=== PATIENT | female | born 1990 | race Caucasian/White ===

== ENCOUNTER 2023-02-03 20:24 | Outpatient (REF) | payer OTHER, SELFPAY ==
[2023-02-08 07:07] LABS: Age Gdln ACOG Testing Note (.); HPV Aptima Negative (Negative); IGP, Aptima HPV, rfx 16/18,45 Note (.)
== END 2023-02-03 20:25 | disposition home or self-care (01) ==
LOC: LAB 20:24
PROVIDERS: Visit Provider Physician Assistant
DX: Z01.419 Encounter for gynecological examination (general) (routine) without abnormal findings (principal)
CPT/HCPCS: 87624; G0145

== ENCOUNTER 2025-02-02 19:30 | Outpatient (REF) | payer OTHER, SELFPAY ==
--- OUTSIDE RECORDS SUMMARY | 2021-06-14 05:32 | XMS_ITS | Continuity of Care Document ---
Author Organization [facility] Address [address] [address] Phone Care Team Providers Care Sharepoint Specialist Name Role Phone Kal Alejo OD Unavailable Unavailable Allergies, Adverse Reactions, Alerts Substance Reaction Status Criticality No Known Allergies Active No Inform ation Medications Medication Instructions Dosage Effective Dates (start - stop) Status Comments Humulin 70/30 U-100 Insulin 100 unit/mL subcutaneous suspension inject by subcutaneous route as per insulin protocol 0.00 - Active metformin 500 mg tablet take 1 tablet by oral route 2 times every day with morning and evening meals 500 MG - Active atorvastatin 40 mg tablet take 1 tablet by oral route every day 40 MG - Active Vitamin D2 1,250 mcg (50,000 unit) capsule - Active multivitamin tablet take 1 tablet by ora l route every day 1 tablet - Active Procedures Procedure Date Dilated Exam Performed And Documented No Oph Serv: Med Exam; Comp New 21 Advance Directives Directive Yes / No Effective Date File Name No Information Encounters Encounter Description Practice Location Reason(s) For Visit Diagnoses Date Provider Providers Copied on Encounter [facility], [address] [facility] , [place], [place], [id number], tel:[phone] [facility] No Information Sapna Bowden. [address] [facility] , [place], [place], [id number], [place]. tel:[phone] [facility], [address] [facility] [address], [place], [place], [id number], tel:[phone] [facility] Diabetic eye exam (chief complaint) Type 2 diabetes mellitus without complication, unspecified whether terminal press operator insulin useMyopia of both eyes Sapna Bowden. [address], [place], [place], [id number], [place]. tel:[phone] Referring Provider: Kal Lazo, [address] [facility] , [place], [address]. tel:[phone] Family History Family Member Type Diagnosis Age At Onset Father Problem (finding) glaucoma Payers Payer name Insurance type Covered libertarian ID Authoriza tion(s) No Information Social History Type Description Quantity Date Captured Comments Alcohol Use Details Unknown Caffeine Use Details Unknown Tobacco Use Status No Information Smoking Status No Information Sex Female Chief Complaint And Reason For Visit No Information Reason For Referral Reason For Referral No Information Plan Of Treatment Date Type Action Status Patient Education Type 2 Diabetes: Care I nstructions completed History Of Present Illness Encounter Date Complaint History Of Prese nt Illness Diabetic eye exam Patient presjason ts for a diabetic eye exam. Patient last glucose level was 136 and A1C was 7.2. Patient states vision has been stable. Patient states she gets intermittent blurriness but blinks it away. No drops/pain. Functional Status Date Functional Assessmen t No Information Instructions Date Instruction Additional Infor mation Impression/Plan Related to Type 2 diabetes mellitus without complication, unspecified whether alf insulin use Impression/Plan Related to Myopi a of both eyes Assessments Type Assessment Date No Information Patient Care Teams Name Effective Dates (start - stop) Status Members No Information
--- OUTSIDE RECORDS SUMMARY | 2023-11-24 04:30 | XMS_ITS ---
Author Organization [facility] Address [address] [address] Care Team Providers Care Donkey Engine Firer/Fireman Name Role Phone Fatemeh Ventura Primary Care Provider REASON FOR VISIT 3 month f/u DM, A1C Social History Sex Assigned At : Social History Observation Description Sex Assigned At Female Encounters Encounter Location Date Provider Diagnosis [facility] [address] [place] [address] 11/24/2023 Fatemeh Vetnura Plan Of Treatment No Information Progress Notes * JEET MCKINNONDOB:[birth year] (34 yo F)Acc No.[id number]:11/24/2023 Progress Notes Patient: JEET JOLLY Provider: Clifton Lala :1990 A ge:33 Y S ex:Female Date:11/24/2023 Address:[address] [place] [address] [address], [id number] Subjective: * Chief Complaints: * 1 . 3 month f/u DM, A1C. * Medical History: Objective: * Vitals: Assessment: Plan: * Treatment: * Images: * Electronic signature of Austyn Ventura CNP on 02/02/2025 at 07:34 PM EDT Sign off status: Pending * Provider: Clifton Lala Date: 11/24/2023 Generated for Nedai ng/Facolbyg/eTransmitting on: 0 02/02/2025 07:34 PM EDT
--- OUTSIDE RECORDS SUMMARY | 2024-09-26 04:55 | XMS_ITS | Continuity of Care Document ---
Author Organization [facility] Address [address] [place] [address] Phone Care Team Providers Care Deputy Sheriff K9 Handler Name Role Phone Alexandre Turpin Unavailable Unavailable Allergies, Adverse Reactions, Alerts Substance Reaction Status Criticality No Known Allergies Active No Inform ation Medications Medication Instructions Dosage Effective Dates (start - stop) Status Comments Ozempic 1 mg/dose (4 mg/3 mL) subcutaneous pen injector inject (1MG) by subcutaneous route every week on the same day of each week 1 MG - Active lisinopril 10 mg tablet take 1 tablet by oral route every day 10 MG - Active metformin 500 mg tablet take 1 tablet by oral route 2 times every day with morning and evening meals 500 MG - Active Procedures Procedure Date TB Read TB INTRADERMAL TEST Covid-19 Vaccine Administration 024 Covid-19 Vaccine, 50 Mcg Moderna 12y Plu s IMMUNIZATION ADMIN FLU VACCINE NO PRESERV 3 & > ROUTINE VENIPUNCTURE TB Read TB INTRADERMAL TEST IMMUNIZATION ADMIN HEP B VACCINE, ADULT, IM IMMUNIZATION ADMIN HEP B VACCINE, ADULT, IM Covid-19 Vaccine Administration 023 Covid-19 Vaccine, 50 Mcg Moderna 12y Plu s ROUTINE VENIPUNCTURE IMMUNIZATION ADMIN FLU VAC NO PRSV 4 QUE 3 YRS+ IMMUNIZATION ADMIN, EACH ADD HEP B VACCINE, ADULT, IM ROUTINE VENIPUNCTURE TB INTRADERMAL TEST IMMUNIZATION ADMIN FLU VAC NO PRSV 4 QUE 3 YRS+ ROUTINE VENIPUNCTURE Bitewig-single Film Limited Oral Eval Intraoral-periapical 1st Film 2 Zixbchviv-gwsamjonor-bygb Additional November URINALYSIS, NONAUTO W/SCOPE URINE TEST SPECIMEN HANDLING HIV-1 ROUTINE VENIPUNCTURE PREVENTIVE COUNSELING, INDIV PREV VISIT, NEW, AGE 18-39 SPECIMEN HANDLING THIN PREP PAP W/REFLEX TO ASCUS 009 URINE TEST OFFICE/OUTPATIENT VISIT, EST URINALYSIS, NONAUTO W/SCOPE Advance Directives Directive Yes / No Effective Date File Name No Information Encounters Encounter Description Practice Location Reason(s) For Visit Diagnoses Date Provider Providers Copied on Encounter [facility], [address] [place] [address], [id number], [place] tel:[phone] [facility] No Information Bob Brannon. [address] [place] [address], [id number], [place]. tel:[phone] [facility], [address] [place] [address], [id number], [place] tel:[phone] [facility] Encounter for screening for respiratory tuberculosis Bob Brannon. [address] [place] [address], [id number], [place]. tel:[phone] [facility], [address] [place] [address], [id number], [place] tel:[phone] [facility] No Information Visci DO Alexandre. [address], [place], [id number], [place]. tel:[phone] [facility], [address], [place], [id number], [place] tel:[phone] [facility] lab draw (chief complaint) No Information Visci Alexandre. [address], [place], [id number], [place]. tel:[phone] [facility], [address], [place], [id number], [place] tel:[phone] [facility] No Information Visci DO Schroeder. [address], [place], [id number], [place]. tel:[phone] [facility], [address], [place], [id number], [place] tel:[phone] [facility] Encounter for screening for respiratory tuberculosis Visci DO Schroeder. [address], [place], [id number], [place]. tel:[phone] [facility], [address], [place], [id number], [place] tel:[phone] [facility] No Information Visci DO Schroeder. [address], [place], [id number], [place]. tel:[phone] [facility], [address], [place], [id number], [place] tel:[phone] [facility] No Information Visci DO Alexandre. [address], [place], [id number], [place]. tel:[phone] [facility], [address], [place], [id number], [place] tel:[phone] [facility] No Information Visci DO Alexandre. [address], [place], [id number], [place]. tel:[phone] [facility], [address], [place], [id number], [place] tel:[phone] [facility] Lab draw (chief complaint) No Information Bob Brannon. [address], [place], [id number], [place]. tel:[phone] [facility], [address], [place], [id number], [place] tel:[phone] [facility] No Information Bob Brannon. [address], [place], [id number], [place]. tel:[phone] [facility], [address], [place], [id number], [place] tel:[phone] [facility] Encounter for antibody response examination Bob Brannon. [address], [place], [id number], [place]. [phone] [facility], [address], [place], [id number], [place] tel:[phone] [facility] Tuberculosis screening Bob Brannon. [address], [place], [id number], [place]. tel:[phone] [facility], [address], [place], [id number], [place] tel:[phone] [facility] labs (chief complaint) Tuberculosis screening Bob Brannon. [address], [place], [id number], [place]. tel:[phone] [facility], [address], [place], [id number], [place] tel:[phone] [facility] [place] (chief complaint) Encounter for screening for dental disorders Uday Moseley. [address] [place], [address], [place]. tel:[phone] PREVENTIVE COUNSELING, INDIV [facility], [address], [place], [id number], [place] tel:[phone] [facility] No Information Betty Márquez. [address], [place], [id number], [place]. tel:[phone] PREV VISIT, NEW, AGE 18-39 [facility], [address], [place], [id number], [place] tel:[phone] [facility] No Information Dav Dugan. [address], [place], [id number]. tel:[phone] OFFICE/OUTPAT IENT VISIT, EST [facility], [address] [place] [address], [id number], [place] tel:[phone] [facility] No Information Betty Márquez. [address], [place], [id number], [place]. tel:[phone] Family History Family Member Type Diagnosis Age At Onset No Information Immunizations Vaccine Date Status Comments Spikevax 12y+ administered Source: New Im munization Record Fluarix/Flulaval administered Source: New Immunization Record Hep B, adult, 3 dose administered Source: New Immunization Record Hep B, adult, 3 dose administered Note: # 2 of second series ; Source: New Immunization Record Spikevax 12y+ administered Source: New Im munization Record Flulaval/ Fluarix administered Source: Ne w Immunization Record Hep B, adult, 3 dose administered Source: New Immunization Record Flulaval/ Fluarix administered Source: Ne w Immunization Record Payers Payer name Insurance type Covered constitution party ID Authoriza tion(s) Self Pay Cap [id number] [facility] [place] [id number] [facility] [place] CI [id number] [facility] [place] CI [id number] Self Pay Cap [id number] Social History Type Description Quantity Date Captured Comments Alcohol Use Details Unknown Caffeine Use Details Unknown Tobacco Use Status No Information Smoking Status No Information Sex Female Sexual Orientation Straight or heterosexual Gender Identity Female Chief Complaint And Reason For Visit No Information Reason For Referral Reason For Referral No Information Plan Of Treatment Date Type Action Status Goal Tdap. Due on due Goal Hepatitis C screening. Due o n due Goal Unhealthy drug use screening . Due on due Goal Hep A. Due on du e Goal Influenza vaccine. Due on Oc due Goal Tdap Vaccine. Due on 2024 due Goal PRAPARE ASSESSMENT. Due on due Goal RLP. Due on due Goal Depression screening. Due on due Goal HPV. Due on due Goal Hep A. Due on du e Goal RLP. Due on due Goal Tdap Vaccine. Due on 2024 due Goal Hepatitis C screening. Due o n due Goal Unhealthy drug use screening . Due on due Goal Influenza vaccine. Due on Oc due Goal HPV. Due on due Goal Tdap. Due on due Goal PRAPARE ASSESSMENT. Due on due Goal Depression screening. Due on due Goal Hep A. Due on du e Goal Influenza vaccine. Due on Oc due Goal Depression screening. Due on due Goal Tdap. Due on due Goal HPV. Due on due Goal Tdap Vaccine. Due on 2023 due Goal RLP. Due on due Goal Unhealthy drug use screening . Due on due Goal Hepatitis C screening. Due o n due Goal PRAPARE ASSESSMENT. Due on O due Goal Hep A. Due on du e Goal Unhealthy drug use screening . Due on due Goal Depression screening. Due on due Goal Influenza vaccine. Due on due Goal PRAPARE ASSESSMENT. Due on A due Goal Tdap Vaccine. Due on 2023 due Goal RLP. Due on due Goal Hepatitis C screening. Due o n due Goal Tdap. Due on due Goal HPV. Due on due Goal Unhealthy drug use screening . Due on due Goal Tdap. Due on due Goal Hepatitis C screening. Due o n due Goal Depression screening. Due on due Goal Influenza vaccine. Due on due Goal PRAPARE ASSESSMENT. Due on due Goal HPV. Due on due Goal Tdap Vaccine. Due on 2023 due Goal RLP. Due on due Goal Hep A. Due on du e Goal Tdap. Due on due Goal Hepatitis C screening. Due o n due Goal Tdap Vaccine. Due on 2023 due Goal Unhealthy drug use screening . Due on due Goal HPV. Due on due Goal Hep A. Due on du e Goal RLP. Due on due Goal Influenza vaccine. Due on due Goal Depression screening. Due on due Goal PRAPARE ASSESSMENT. Due on due Goal PRAPARE ASSESSMENT. Due on due Goal HPV. Due on due Goal Hep A. Due on du e Goal Influenza vaccine. Due on due Goal Tdap Vaccine. Due on 2023 due Goal Depression screening. Due on due Goal Unhealthy drug use screening . Due on due Goal Tdap. Due on due Goal RLP. Due on due Goal Hepatitis C screening. Due o n due Goal Tdap. Due on due Goal Influenza vaccine. Due on Ja due Goal PRAPARE ASSESSMENT. Due on J due Goal HPV. Due on due Goal Depression screening. Due on due Goal Hep A. Due on du e Goal Tdap Vaccine. Due on 2023 due Goal Hepatitis C screening. Due o n due Goal Unhealthy drug use screening . Due on due Goal RLP. Due on due Goal Hep A. Due on du e Goal Hepatitis C screening. Due o n due Goal RLP. Due on due Goal PRAPARE ASSESSMENT. Due on N due Goal Tdap. Due on due Goal HPV. Due on due Goal Unhealthy drug use screening . Due on due Goal Depression screening. Due on due Goal Influenza vaccine. Due on due Goal Tdap Vaccine. Due on 2022 due Goal Hep A. Due on du e Goal Unhealthy drug use screening . Due on due Goal RLP. Due on due Goal Depression screening. Due on due Goal Tdap. Due on due Goal HPV. Due on due Goal PRAPARE ASSESSMENT. Due on N ov due Goal Influenza vaccine. Due on No v due Goal Hepatitis C screening. Due o n due Goal Tdap Vaccine. Due on 2022 due Goal HPV. Due on due Goal Influenza vaccine. Due on Oc t due Goal PRAPARE ASSESSMENT. Due on O ct due Goal Hepatitis C screening. Due o n due Goal RLP. Due on due Goal Tdap Vaccine. Due on 2022 due Goal Tdap. Due on due Goal Depression screening. Due on due Goal Unhealthy drug use screening . Due on due Goal Influenza vaccine. Due on Se due Goal Tdap. Due on due Goal RLP. Due on due Goal Depression screening. Due on due Goal PRAPARE ASSESSMENT. Due on S due Goal Tdap Vaccine. Due on 2022 due Goal PRAPARE ASSESSMENT. Due on M due Goal Influenza vaccine. Due on Ma due Goal Tdap. Due on due Goal RLP. Due on due Goal Hep A. Due on du e Goal Hep A. Due on du e Goal Tdap Vaccine. Due on 2022 due Goal Depression screening. Due on due Goal Influenza vaccine. Due on due Goal Depression screening. Due on due Goal PRAPARE ASSESSMENT. Due on D due Goal RLP. Due on due Goal Tdap. Due on due History Of Present Illness Encounter Date Complaint History Of Prese nt Illness lab draw Patient here for hep b titer. Venipuncture successful on first attempt in [place], pt tolerated well. [facility] Lab draw Patient here for lab draw, lab drawn in [facility], patient tolerated well // [facility] [place]. labs lab draw to [facility] unsuccessful x1. Lab draw to left ac successful x1. Patient tolerated well.Calixto Mcnair Rn [place] Functional Status Date Functional Assessmen t No Information Instructions Date Instruction Additional Infor mation No Information Assessments Type Assessment Date No Information Patient Care Teams Name Effective Dates (start - stop) Status Members No Information
--- OUTSIDE RECORDS SUMMARY | 2025-02-02 10:00 | XMS_ITS | Encounter Summary ---
Author Organization [facility] Address [address] [place] [address] Care Team Providers Care Forming Machine Tender Name Role Phone Xiomara Garcias MD, IBCLC Primary Care Provid er Xiomara Garcias MD, IBCLC Unavailable [phone]- [phone] Reason for Visit * Reason Comments Well Women Visit Encounter Details Date Type Department Care Team (Latest Contact Info) Description 02/02/2025 10:00 AM EDT Procedure Visit [facility] CONTRERAS [address] [address] Tamiko Johnson PA [address] [place], [facility] Well woman exam with routine gynecological exam; STD exposure; Sexually transmitted disease exposure Social History Tobacco Use Types Packs/Day Years Used Date Smoking Tobacco: Never Smokeless Tobacco: Never Alcohol Use Standard Drinks/Week Comments Never 0 (1 standard drink = 0.6 oz pur e alcohol) Caffeine intake type: soda B1300 Health Literacy Answer Date Recor ded How often do you need to hav e someone help you when you read instructions, pamphlets, or other written material from your doctor or pharmacy? Never 10/31/2024 Humiliation, Afraid, Rape, and Kick questionnair e Answer Date Recorded Within the last year, have y ou been afraid of your partner or ex-partner? Yes 10/31/2024 Within the last year, have y ou been humiliated or emotionally abused in other ways by your partner or ex-partner? Yes Within the last year, have y ou been kicked, hit, slapped, or otherwise physically hurt by your partner or ex-partner? No 10/31/2024 Within the last year, have y ou been raped or forced to have any kind of sexual activity by your partner or ex-partner? No 10/31/2024 Social Connection and Isolation Panel [NHANES] A nswer Date Recorded In a typical week, how many times do you talk on the phone with family, friends, or neighbors? Three times a week 10/31/2024 How often do you get togethe r with friends or relatives? Once a week 10/31/2024 How often do you attend chur or episcopal services? Never 10/31/2024 Do you belong to any clubs o r organizations such as shinto groups, unions, fraternal or athletic groups, or school groups? Yes 10/31/2024 How often do you attend meet ings of the clubs or organizations you belong to? Never 10/31/2024 Are you , , di vorced, , never , or living with a partner? 10/31/2024 AUDIT-C Answer Date Recorded Q1: How often do you have a drink containing alcohol? Never 10/31/2024 Q2: How many drinks containi ng alcohol do you have on a typical day when you are drinking? Patient does not drink Q3: How often do you have si x or more drinks on one occasion? Never 10/31/2024 Overall Financial Resource Strain (CARDIA) Answe r Date Recorded How hard is it for you to pa y for the very basics like food, housing, medical care, and heating? Somewhat hard 10/31/2024 [facility] [place] of Occupat ional Health - Occupational Stress Questionnaire Answer Date Recorded Do you feel stress - tense, restless, nervous, or anxious, or unable to sleep at night because your mind is troubled all the time - these days? Rather much 10/31/2024 Exercise Vital Sign Answer Date Recorde d On average, how many days pe r week do you engage in moderate to strenuous exercise (like a brisk walk)? 2 days 10/31/2024 On average, how many minutes do you engage in exercise at this level? 20 min 10/31/2024 Hunger Vital Sign Answer Date Recorded Within the past 12 months, y ou worried that your food would run out before you got the money to buy more. Sometimes true Within the past 12 months, t he food you bought just didn't last and you didn't have money to get more. Never true PRAPARE - Transportation Answer Date Re corded In the past 12 months, has l ack of transportation kept you from medical appointments or from getting medications? No 10/05 In the past 12 months, has l ack of transportation kept you from meetings, work, or from getting things needed for daily living? No 10/31/2024 Housing Stability Vital Sign Answer Jelani e Recorded In the last 12 months, was t here a time when you were not able to pay the mortgage or rent on time? No 10/21/2023 In the last 12 months, how many places have you lived? 1 10/21/2023 In the last 12 months, was t here a time when you did not have a steady place to sleep or slept in a nursing home (including now)? Yes 10/21/2023 Housing Stability Vital Sign Answer Jelani e Recorded In the last 12 months, was t here a time when you were not able to pay the mortgage or rent on time? Yes 10/31/2024 Number of Times Moved in the Last Year Not on fi le 10/31/2024 At any time in the past 12 m [facility], were you homeless or living in a nursing home (including now)? No 10/31/2024 Comments Unknown Sex and Gender Information Value Date Recorded Sex Assigned at Female 11/25/2022 2:54 PM EDT Legal Sex Female 7:23 PM EDT Gender Identity Female 11/25/2022 2:54 PM EDT Sexual Orientation Straight 11/25/2022 2: 54 PM EDT documented as of this encounter Last Filed Vital Signs Vital Sign Reading Time Taken Comments Blood Pressure 128/90 02/02/2025 9:59 AM EDT Pulse - - Temperature - - Respiratory Rate - - Oxygen Saturation - - Inhaled Oxygen Concentration - - Weight 142 kg (314 lb) 02/02/2025 9:59 AM EDT Height - - Body Mass Index 55.62 11/03/2024 3:02 PM EDT documented in this encounter Progress Notes * KRISHNA Mak - 02/02/2025 10:00 AM EDT Reason for Appointment: Patient ID: Terri Bajwa is a 34 y.o. female who presents for Well Women Visit Patient presents today for Annual Exam. MEDICATIONS Current Outpatient Medications Medication Instructions atorvastatin (LIPITOR) 40 mg, Oral, Daily Blood Glucose Monitoring Suppl (True Metrix Meter) w/Device kit Use four times daily to test blood sugar Drug Mcdade Unilet Lancets 33G misc USE TO CHECK BLOOD SUGAR THREE TIMES DAILY glucose blood (True Metrix Blood Glucose Test) test strip USE TO CHECK BLOOD SUGAR THREE TIMES DAILY lisinopril 10 mg, Oral, Daily metFORMIN (GLUCOPHAGE) 500 mg, Oral, 2 times daily with meals Mounjaro 15 mg, Subcutaneous, Weekly ALLERGIES No Known Allergies PROBLEMS Active Ambulatory Problems Diagnosis Date Noted Hyperlipidemia 09/10/2023 Hypertension due to endocrine disorder 09/10/2023 Irregular menstrual cycle 09/10/2023 Mixed anxiety and depressive disorder 09/10/2023 Obstructive sleep apnea syndrome 09/10/2023 Type 2 diabetes mellitus with microalbuminuria, with long-term current use of insulin ([facility] 09/10/2023 TMJ (temporomandibular joint syndrome) 09/14/2023 Morbid (severe) obesity due to excess calories ([facility] 02/01/2024 Body mass index (BMI) 50.0-59.9, adult ([facility] 02/01/2024 Resolved Ambulatory Problems Diagnosis Date Noted Benign essential hypertension 09/10/2023 Pain in left leg 09/10/2023 Type 2 diabetes mellitus without complications (HCC) 09/10/2023 Normocytic anemia 10/22/2023 Past Medical History: Diagnosis Date Diabetes (HCC) History of miscarriage Hypertension HISTORY PAST MEDICAL HISTORY SOCIAL HISTORY Past Medical History: Diagnosis Date Diabetes (HCC) type II History of miscarriage Hypertension Irregular menstrual cycle Normocytic anemia 10/22/2023 HEMOGLOBIN 10/20/2023 11.6 (L) HEMATOCRIT 10/20/2023 36.3 MCV 10/20/2023 87.9 Hgb in 2022 was 8.8. Therefore much improved. No clinical stigmata of bleeding. Can consider iron, B12/folate assay in future if symptomatic. Currently asymptomatic. Social History Tobacco Use Smoking status: Never Smokeless tobacco: Never Substance Use Topics Alcohol use: Never Comment: Caffeine intake type: soda Drug use: Not on file FAMILY HISTORY Family History Problem Relation Name Age of Onset Thyroid disease Mother Eczema Mother Diabetes Father Diabetes Daughter SURGICAL HISTORY Past Surgical History: Procedure Laterality Date DILATION AND CURETTAGE OF UTERUS MULTIPLE TOOTH EXTRACTIONS 2023 REVIEW OF SYSTEMS Review of Systems: Review of Systems Constitutional: Negative. HENT: Negative. Eyes: Negative. Respiratory: Negative. Cardiovascular: Negative. Gastrointestinal: Negative. Genitourinary: Negative. Musculoskeletal: Negative. Skin: Negative. Neurological: Negative. All other systems reviewed and are negative. Hematological: Negative. Endocrine: Negative. Allergic/Immunologic: Negative. OBJECTIVE Objective: Physical Exam Constitutional: Appearance: Normal appearance. Genitourinary: Right Adnexa: not tender and no mass present. Left Adnexa: not tender and no mass present. No cervical discharge. Breasts: Breasts are soft. Right: Normal. Left: Normal. HENT: Head: Normocephalic. Nose: Nose normal. Mouth/Throat: Mouth: Mucous membranes are moist. Cardiovascular: Rate and Rhythm: Normal rate. Pulmonary: Effort: Pulmonary effort is normal. Abdominal: General: Bowel sounds are normal. Palpations: Abdomen is soft. Comments: Abdominal pannus Musculoskeletal: General: Normal range of motion. Cervical back: Normal range of motion. Neurological: General: No focal deficit present. Mental Status: She is alert. Skin: General: Skin is warm and dry. Psychiatric: Mood and Affect: Mood normal. Vitals and nursing note reviewed. Exam conducted with a pocket grinder operator present. Vitals: Estimated body mass index is 55.62 kg/m?? as calculated from the following: Height as of 11/03/24: 5' 3 . Weight as of this encounter: 314 lb. BP: 128/90 No LMP recorded (lmp unknown). ASSESSMENT & PLAN ICD-10-CM 1. Well woman exam with routine gynecological exam Z01.419 Pap Smear HPV DNA probe, amplified 2. STD exposure Z20.2 SURESWAB(R) ADVANCED VAGINITIS PLUS, TMA CHLAMYDIA TRACHOMATIS (GENITO/STI) Neisseria gonorrhea DNA probe, direct 3. Sexually transmitted disease exposure Z20.2 HIV-1 and HIV-2 antibodies Hepatitis B surface antigen RPR Annual Exam: Patient presents today for an annual exam. Patient states she is doing well and has no complaints. Pap was obtained without difficulty. Orders Placed This Encounter Procedures HPV DNA probe, amplified CHLAMYDIA TRACHOMATIS (GENITO/STI) Neisseria gonorrhea DNA probe, direct HIV-1 and HIV-2 antibodies Hepatitis B surface antigen RPR Follow Up: Patient is to return in one year for annual unless needed otherwise. Documented by KRISHNA Mak on behalf of: KRISHNA Mak documented in this encounter Plan of Treatment Upcoming Encounters Date Type Department Care Team (Late st Contact Info) Description 05/11/2025 2:00 PM EST Office Visit [facility] [address] [place] [address] Xiomara Garcias MD, IBCLC [address] [place] [address] Scheduled Orders Name Type Priority Associated Diagnoses Orde r Schedule Pap Smear Pathology and Cytology Routine Well woman exam with routine gynecological exam Ordered: 02/02/2025 HPV DNA probe, amplified Microbiology Routine Well woman exam with routine gynecological exam Ordered: 02/02/2025 SURESWAB(R) ADVANCED VAGINITIS PLUS, TMA Pathology and Cytology Routine STD exposure Ordered: 02/02/2025 CHLAMYDIA TRACHOMATIS (GENITO/STI) Lab Routine STD exposure Ordered: 02/02/2025 Neisseria gonorrhea DNA probe, direct Lab Routine STD exposure Ordered: 02/02/2025 HIV-1 and HIV-2 antibodies Lab Routine Sexually transmitted disease exposure Ordered: 02/02/2025 Hepatitis B surface antigen Lab Routine Sexually transmitted disease exposure Ordered: 02/02/2025 RPR Lab Routine Sexually transmitted disease exposure Ordered: 02/02/2025 documented as of this encounter Visit Diagnoses Diagnosis Well woman exam with routine gynecological exam Routine gynecological examination STD exposure Sexually transmitted disease exposure Contact with or exposure to venereal diseases documented in this encounter Care Teams Forming Machine Tender Relationship Specialty Start Date End Date Xiomara Garcias MD, IBCLC [address] [place], [place] [id number] PCP - General Family Medicine 09/11/23 Xiomara Garcias MD, IBCLC [address] [place] [address] PCP - Medical [place] [employer] 12/04/22 07/05/99 documented as of this encounter
--- OUTSIDE RECORDS SUMMARY | 2025-02-02 19:34 | XMS_ITS | Encounter Summary ---
Author Organization [facility] Address [address] [place] [address] Care Team Providers Care Auto Parts Clerk Name Role Phone Xiomara Garcias MD, IBCLC Primary Care Provid er Xiomara Garcias MD, IBCLC Unavailable [phone]- [phone] Encounter Details Date Type Department Care Team (Late st Contact Info) Description 07/07/2024 Orders Only [facility] [address] [place] [phone] Nidia Patrick MD [address] [place] [address] Social History Tobacco Use Types Packs/Day Years Used Date Smoking Tobacco: Never Smokeless Tobacco: Never Alcohol Use Standard Drinks/Week Comments Never 0 (1 standard drink = 0.6 oz pur e alcohol) Caffeine intake type: soda Social Connection and Isolat ion Panel [NHANES] Answer Date Recorded In a typical week, how many times do you talk on the phone with family, friends, or neighbors? More than three times a week 10/21/2023 How often do you get togethe r with friends or relatives? More than three times a week 10/21/2023 How often do you attend chur ch or druze services? 1 to 4 times per year 10/21/2023 Do you belong to any clubs o r organizations such as methodist groups, unions, fraternal or athletic groups, or school groups? No 10/21/2023 How often do you attend meet ings of the clubs or organizations you belong to? Patient declined 10/21/2023 Are you , , di vorced, , never , or living with a partner? 10/21/2023 AUDIT-C Answer Date Recorded Q1: How often do you have a drink containing alc ohol? Monthly or less 10/21/2023 Q2: How many drinks containi ng alcohol do you have on a typical day when you are drinking? 1 or 2 10/21/2023 Q3: How often do you have si x or more drinks on one occasion? Never 10/21/2023 Overall Financial Resource Strain (CARDIA) Answe r Date Recorded How hard is it for you to pa y for the very basics like food, housing, medical care, and heating? Not hard at all 10/21/2023 [facility] of Occupat ional Health - Occupational Stress Questionnaire Answer Date Recorded Do you feel stress - tense, restless, nervous, or anxious, or unable to sleep at night because your mind is troubled all the time - these days? To some extent 10/21/2023 Exercise Vital Sign Answer Date Recorde d On average, how many days pe r week do you engage in moderate to strenuous exercise (like a brisk walk)? 1 day 10/21/2023 On average, how many minutes do you engage in exercise at this level? 20 min 10/21/2023 Hunger Vital Sign Answer Date Recorded Within the past 12 months, y ou worried that your food would run out before you got the money to buy more. Never true 10/21/19 24 Within the past 12 months, t he food you bought just didn't last and you didn't have money to get more. Never true 10/21/2023 PRAPARE - Transportation Answer Date Re corded In the past 12 months, has l ack of transportation kept you from medical appointments or from getting medications? No 10/21/2023 Lack of Transportation (Non-Medical) Not on file 10/21/2023 Housing Stability Vital Sign Answer Jelani [...] place to sleep or slept in a custodial (including now)? Yes 10/21/2023 Comments Unknown Sex and Gender Information Value Date Recorded Sex Assigned at Female 11/25/2022 2:54 PM EDT Legal Sex Female 7:23 PM EDT Gender Identity Female 11/25/2022 2:54 PM EDT Sexual Orientation Straight 11/25/2022 2: 54 PM EDT documented as of this encounter Plan of Treatment Upcoming Encounters Date Type Department Care Team (Late st Contact Info) Description 05/11/2025 2:00 PM EST Office Visit [facility] [address] [place] [address] Xiomara Garcias MD, IBCLC [address] [place] [address] documented as of this encounter Procedures Procedure Name Priority Date/Time Associated Diagnosis Comments DIABETIC RETINOPATHY SCREENING - OU - BOTH EYES Routine 06/14/2024 3:03 PM EST documented in this encounter Results * Diabetic Retinopathy Screening - OU - Both Eyes (06/14/2024 3:03 PM EST) Anatomical Region Laterality Modality Head Other Nidia Patrick MD OPHTH PHOTOGRAPHY Final Result documented in this encounter Visit Diagnoses Not on filedocumented in this encounter Care Teams Auto Parts Clerk Relationship Specialty Start Date End Date Xiomara Garcias MD, IBCLC [address] [place] [address] PCP - General Family Medicine 09/11/23 Xiomara Garcias MD, IBCLC [address] [place] [address] PCP - Medical [place] [employer] 12/04/22 07/05/99 documented as of this encounter
--- OUTSIDE RECORDS SUMMARY | 2025-02-02 19:34 | XMS_ITS | Encounter Summary ---
Author Organization [facility] Address [address] [place] [address] Care Team Providers Care Customer Professional Name Role Phone Xiomara Garcias MD, IBCLC Primary Care Provid er Xiomara Garcias MD, IBCLC Unavailable [phone]- [phone] Encounter Details Date Type Department Care Team (Latest Contact Info) Description 01/29/2025 Travel Social History Tobacco Use Types Packs/Day Years [...] 10/31/2024 How often do you attend chur ch or quaker services? Never 10/31/2024 Do you belong to any clubs o r organizations such as islam groups, unions, fraternal or athletic groups, or [...] medical care, and heating? Somewhat hard 10/31/2024 [facility] [place] of Occupat ional Health - Occupational Stress [...] place to sleep or slept in a halfway (including now)? Yes 10/21/2023 Housing Stability Vital Sign Answer Jelani e Recorded In the last 12 months, was t here a time when you were not able to pay the mortgage or rent on time? Yes 10/31/2024 Number of Times Moved in the Last Year Not on fi le 10/31/2024 At any time in the past 12 m [facility], were you homeless or living in a halfway (including now)? No 10/31/2024 Comments Unknown Sex [...] Office Visit [facility] [address] [place] [address] Xiomara Garcias MD, IBCLC [address] [place] [address] documented as of this encounter Visit Diagnoses Not on filedocumented in this encounter Care Teams Customer Professional Relationship Specialty Start Date End Date Xiomara Garcias MD, IBCLC [address] [place] [address] PCP - General Family Medicine 09/11/23 Xiomara Garcias MD, IBCLC [address] [place] [address] PCP - Medical [place] [employer] 12/04/22 07/05/99 documented as of this encounter
--- OUTSIDE RECORDS SUMMARY | 2025-02-02 19:34 | XMS_ITS | Encounter Summary ---
Author Organization [facility] Address [address] [place] [address] Care Team Providers Care Project Consultant Name Role Phone Xiomara Garcias MD, IBCLC Primary Care Provid er Xiomara Garcias MD, IBCLC Unavailable [phone]- [phone] Reason for Visit * Reason Onset Date Comments Med Refill 03/31/2024 Encounter Details Date Type Department Care Team (Late st Contact Info) Description 03/31/2024 Refill [facility] [address] [place] [phone] Xiomara Garcias MD, IBCLC [address] [place] [address] Type 2 diabetes mellitus with microalbuminuria, with long-term current use of insulin ([facility]) Social History Tobacco Use Types Packs/Day Years [...] 10/21/2023 How often do you attend chur or denominational services? 1 to 4 times per year [...] and heating? Not hard at all 10/21/2023 [facility] of Occupat ional Health - Occupational Stress [...] a nursing home (including now)? Yes 10/21/2023 Comments Unknown Sex [...] 05/11/2025 2:00 PM EST Office Visit [facility] [address] [place] [phone] Xiomara Garcias MD, IBCLC [address] [place] [address] documented as of this encounter Visit Diagnoses Diagnosis Type 2 diabetes mellitus with microalbuminuria, with long-term current use of insulin (HCC) documented in this encounter Care Teams Project Consultant Relationship Specialty Start Date End Date Xiomara Garcias MD, IBCLC [address] [place] [address] PCP - General Family Medicine 09/11/23 Xiomara Garcias MD, IBCLC [address] [place] [address] PCP - Medical [place] [employer] 12/04/22 07/05/99 documented as of this encounter
--- OUTSIDE RECORDS SUMMARY | 2025-02-02 19:34 | XMS_ITS | Encounter Summary ---
Author Organization [facility] Address [address] [place] [address] Care Team Providers Care Support Representative Name Role Phone Xiomara Garcias MD, IBCLC Primary Care Provid er Xiomara Garcias MD, IBCLC Unavailable [phone]- [phone] Encounter Details Date Type Department Care Team (Late st Contact Info) Description 02/02/2025 Bamboo flowsheet [facility] [address] [place] [phone] Tamiko Johnson PA [address] [place], [facility] Social History Tobacco Use Types Packs/Day Years [...] often do you attend chur ch or restoration services? Never 10/31/2024 Do you belong to any clubs o r organizations such as anglican groups, unions, fraternal or athletic groups, or [...] medical care, and heating? Somewhat hard 10/31/2024 [facility] of Occupat ional Health - Occupational Stress [...] place to sleep or slept in a group home (including now)? Yes 10/21/2023 Housing Stability Vital Sign Answer Jelani e Recorded In the last 12 months, was t here a time when you were not able to pay the mortgage or rent on time? Yes 10/31/2024 Number of Times Moved in the Last Year Not on fi le 10/31/2024 At any time in the past 12 m [facility], were you homeless or living in a group home (including now)? No 10/31/2024 Comments Unknown [...] Visit [facility] [address] [place] [phone] Xiomara Garcias MD, IBCLC [address] [place] [address] documented as of this encounter Visit Diagnoses Not on filedocumented in this encounter Care Teams Support Representative Relationship Specialty Start Date End Date Xiomara Garcias MD, IBCLC [address] [place] [address] PCP - General Family Medicine 09/11/23 Xiomara Garcias MD, IBCLC [address] [place] [address] PCP - Medical [place] [employer] 12/04/22 07/05/99 documented as of this encounter
--- OUTSIDE RECORDS SUMMARY | 2025-02-02 19:34 | XMS_ITS | Encounter Summary ---
Author Organization [employer] Address [id number] [address] [place] [address] Care Team Providers Care Manufacturing Test Engineer Name Role Phone Unavailable Primary Care Provider Unavailabl e Encounter Details Date Type Department Care Team (Late st Contact Info) Description 10/20/2023 Orders Only [facility] [address] [phone] Alexandria Roman MD [address] [address] Social History Tobacco Use Types Packs/Day Years Used Date Smoking Tobacco: Former Cigarettes Q uit: 2013 Smokeless Tobacco: Never Alcohol Use Standard Drinks/Week Comments Yes 0 (1 standard drink = 0.6 oz pur e alcohol) rare Hunger Screening Answer Date Recorded Within the past 12 months we worried whether our food would run out before we got money to buy more. Never True 09/16/2023 Within the past 12 months th e food we bought just didn't last and we didn't have money to get more. Never True 09/16/2023 Comments Unknown Sex and Gender Information Value Date Recorded Sex Assigned at Female 09/13/2023 10:59 PM EDT Legal Sex Female 1:17 PM EDT Gender Identity Female 09/13/2023 10:59 PM EDT Sexual Orientation Straight 09/13/2023 10 :59 PM EDT documented as of this encounter Plan of Treatment Not on file documented as of this encounter Procedures Procedure Name Priority Date/Time Associated Diagnosis Comments CREATININE, URINE, 24 HOUR Routine 10/20/2023 documented in this encounter Results * Creatinine, urine, 24 hour (10/20/2023) 10/20/2023 us Scanning Provider External URINE ORDERABLES Saida l Result documented in this encounter Visit Diagnoses Not on filedocumented in this encounter
--- OUTSIDE RECORDS SUMMARY | 2025-02-02 19:34 | XMS_ITS | Encounter Summary ---
Author Organization [facility] Address [address] [place] [address] Care Team Providers Care Machine Welder Name Role Phone Dimas Boo Primary Care Provider [phone] Xiomara Garcias MD, IBCLC Primary Care Provid er Xiomara Garcias MD, IBCLC Unavailable [phone]- [phone] Encounter Details Date Type Department Care Team (Late Contact Info) Description 01/20/2023 Abstract [facility] [address] [place] [address] Tamiko Johnson PA [address] [place], [facility] Social History Tobacco Use Types Packs/Day Years Used Date Smoking Tobacco: Never Alcohol Use Standard Drinks/Week Comments Never 0 (1 standard drink = 0.6 oz pur e alcohol) Caffeine intake type: soda Comments Unknown Sex and Gender Information Value Date Recorded Sex Assigned at Female 11/25/2022 2:54 PM EDT Legal Sex Female 7:23 PM EDT Gender Identity Female 11/25/2022 2:54 PM EDT Sexual Orientation Straight 11/25/2022 2: 54 PM EDT COVID-19 Exposure Response Date Recorded In the last 10 days, have yo u been in contact with someone who was confirmed or suspected to have Coronavirus/COVID-19? No / Unsure 01/20/2023 3:28 PM EDT documented as of this encounter Plan of Treatment Upcoming Encounters Date Type Department Care Team (Late Contact Info) Description 05/11/2025 2:00 PM EST Office Visit [facility] [address] [place] [address] Xiomara Garcias MD, IBCLC [address] [place] [address] documented as of this encounter Visit Diagnoses Not on filedocumented in this encounter Care Teams Machine Welder Relationship Specialty Start Date End Date Dimas Boo DO [address] [place] [address] PCP - General Family Medicine 11/11/22 09/10/23 Xiomara Garcias MD, IBCLC [address] [place] [address] PCP - General Family Medicine 09/11/23 Xiomara Garcias MD, IBCLC [facility] [place] [address] PCP - Medical [place] [employer] 12/04/22 07/05/99 documented as of this encounter
--- OUTSIDE RECORDS SUMMARY | 2025-02-02 19:34 | XMS_ITS | Encounter Summary ---
Author Organization [facility] Address [address] [place] [address] Care Team Providers Care Marketing Account Manager Name Role Phone Dimas Boo Primary Care Provider [phone] Xiomara Gacrias MD, IBCLC Primary Care Provid er Xiomara Garcias MD, IBCLC Unavailable [phone] Encounter Details Date Type Department Care Team (Late Contact Info) Description 12/03/2022 Abstract [facility] [address] [place] [address] Carlos Taylor DO [address] [place] [address] Social History Tobacco Use Types Packs/Day Years Used Date Smoking Tobacco: Never Tobacco Cessation:Counseling Given: Not Answered Alcohol Use Standard Drinks/Week Comments Never 0 [...] Upcoming Encounters Date Type Department Care Team ([facility] Contact Info) Description 05/11/2025 2:00 PM EST Office Visit [facility] [address] [place] [phone] Xiomara Garcias MD, IBCLC [address] [place] [address] documented as of this encounter Visit Diagnoses Not on filedocumented in this encounter Care Teams Marketing Account Manager Relationship Specialty Start Date End Date Dimas Boo DO [address] [place] [address] PCP - General Family Medicine 11/11/22 09/10/23 Xiomara Garcias MD, IBCLC [address] [place] [address] PCP - General Family Medicine 09/11/23 Xiomara Garcias MD, IBCLC [address] [place] [address] PCP - Medical [place] [employer] 12/04/22 07/05/99 documented as of this encounter
--- OUTSIDE RECORDS SUMMARY | 2025-02-02 19:34 | XMS_ITS | Encounter Summary ---
Author Organization [facility] Address [address] [place] [address] Care Team Providers Care Lead Level Designer Name Role Phone Xiomara Garcias MD, IBCLC Primary Care Provid er Xiomara Garcias MD, IBCLC Unavailable [phone] Encounter Details Date Type Department Care Team (Late st Contact Info) Description 06/24/2024 Orders Only [facility] [address] [place] [address] Xiomara Garcias MD, IBCLC [address] [place] [address] Type 2 diabetes mellitus with microalbuminuria, with long-term current use of insulin (HCC) Social History Tobacco Use Types Packs/Day Years [...] often do you attend chur ch or yarsani services? 1 to 4 times per year 10/21/2023 Do you belong to any clubs o r organizations such as lutheran groups, unions, fraternal or athletic groups, or [...] and heating? Not hard at all 10/21/2023 [facility] of Occupat ional Health - Occupational Stress [...] place to sleep or slept in a penitentiary (including now)? Yes 10/21/2023 Comments Unknown Sex [...] 05/11/2025 2:00 PM EST Office Visit [facility] [address] [place] [address] Xiomara Garcias MD, IBCLC [address] [place] [address] documented as of this encounter Visit Diagnoses Diagnosis Type 2 diabetes mellitus with microalbuminuria, with long-term current use of insulin (HCC) documented in this encounter Care Teams Lead Level Designer Relationship Specialty Start Date End Date Xiomara Garcias MD, IBCLC [address] [place] [address] PCP - General Family Medicine 09/11/23 Xiomara Garcias MD, IBCLC [address] [place] [address] PCP - Medical [place] [employer] 12/04/22 07/05/99 documented as of this encounter
--- OUTSIDE RECORDS SUMMARY | 2025-02-02 19:34 | XMS_ITS | Encounter Summary ---
Author Organization [employer] Address [id number] [address] [place] [address] Care Team Providers Care Speech Correction Consultant Name Role Phone Unavailable Primary Care Provider Unavailabl e Encounter Details Date Type Department Care Team (Late st Contact Info) Description 10/23/2023 Orders Only [facility] [address] [phone] Alexandria Roman MD [address] [address] Social History Tobacco Use Types Packs/Day Years [...] Procedure Name Priority Date/Time Associated Diagnosis Comments CORTISOL Routine 10/20/2023 documented in this encounter Results * Cortisol (10/20/2023) 10/20/2023 us Scanning Provider External LAB BLOOD ORDERABLES Final Result documented in this encounter Visit Diagnoses Not on filedocumented in this encounter
--- OUTSIDE RECORDS SUMMARY | 2025-02-02 19:34 | XMS_ITS | Encounter Summary ---
Author Organization [facility] Address [address] [place] [address] Care Team Providers Care Beauty School Instructor Name Role Phone Xiomara Garcias MD, IBCLC Primary Care Provid er Xiomara Garcias MD, IBCLC Unavailable [phone] Encounter Details Date Type Department Care Team (Late st Contact Info) Description 10/27/2023 Orders Only [facility] [address] [place] [address] Xiomara Garcias MD, IBCLC [address] [place] [address] Social History Tobacco Use Types [...] often do you attend chur ch or adventism services? 1 to 4 times per year 10/21/2023 Do you belong to any clubs o r organizations such as spiritism groups, unions, fraternal or athletic groups, or [...] and heating? Not hard at all 10/21/2023 [facility] of Occupat ional Health - Occupational Stress [...] place to sleep or slept in a assisted (including now)? Yes 10/21/2023 Comments Unknown Sex [...] 05/11/2025 2:00 PM EST Office Visit [facility] [address] [place] [address] Xiomara Garcias MD, IBCLC [address] [place] [address] documented as of this encounter Procedures Procedure Name Priority Date/Time Associated Diagnosis Comments DIABETIC RETINOPATHY SCREENING - OU - BOTH EYES Routine 09/17/2022 9:47 AM EDT documented in this encounter Results * Diabetic Retinopathy Screening - OU - Both Eyes (09/17/2022 9:47 AM EDT) Anatomical Region Laterality Modality Head Other us Xiomara Gracias MD, IBCLC OPHTH PHOTOGRAPHY Fi nal Result documented in this encounter Visit Diagnoses Not on filedocumented in this encounter Care Teams Beauty School Instructor Relationship Specialty Start Date End Date Xiomara Garcias MD, IBCLC [address] [place] [address] PCP - General Family Medicine 09/11/23 Xiomara Garcias MD, IBCLC [address] [place] [address] PCP - Medical [place] [employer] 12/04/22 07/05/99 documented as of this encounter
--- OUTSIDE RECORDS SUMMARY | 2025-02-02 19:34 | XMS_ITS | Encounter Summary ---
Author Organization [facility] Address [address] [place] [address] Care Team Providers Care Roller Stainer Name Role Phone Xiomara Garcias MD, IBCLC Primary Care Provid er Xiomara Garcias MD, IBCLC Unavailable [phone] Reason for Visit * Reason Onset Date Comments Med Refill 02/04/2024 Encounter Details Date Type Department Care Team (Late st Contact Info) Description 02/04/2024 Refill [facility] [address] [place] [address] Xiomara Garcias MD, IBCLC [address] [place] [address] Type 2 diabetes mellitus with microalbuminuria, with long-term current use of insulin ([facility]) Social History Tobacco Use Types Packs/Day Years [...] How often do you attend chur or yazidism services? 1 to 4 times per year 10/21/2023 Do you belong to any clubs o r organizations such as jehovah's witness groups, unions, fraternal or athletic groups, or [...] and heating? Not hard at all 10/21/2023 [facility] of Occupat ional Health - Occupational Stress [...] place to sleep or slept in a prison (including now)? Yes 10/21/2023 Comments Unknown Sex and Gender Information Value Date Recorded Sex Assigned at Female 11/25/2022 2:54 PM EDT Legal Sex Female 7:23 PM EDT Gender Identity Female 11/25/2022 2:54 PM EDT Sexual Orientation Straight 11/25/2022 2: 54 PM EDT documented as of this encounter Miscellaneous Notes * Telephone Encounter - Xiomara Garcias MD, IBCLC - 02/04/2024 10:15 AM EDT Duplicate: Addressed in a previous response or encounter documented in this encounter Plan of Treatment Upcoming Encounters Date Type Department Care Team (Late st Contact Info) Description 05/11/2025 2:00 PM EST Office Visit [facility] [address] [place] [address] Xiomara Garcias MD, IBCLC [address] [place] [address] documented as of this encounter Visit Diagnoses Diagnosis Type 2 diabetes mellitus with microalbuminuria, with long-term current use of insulin (HCC) documented in this encounter Care Teams Roller Stainer Relationship Specialty Start Date End Date Xiomara Garcias MD, IBCLC [address] [place] [address] PCP - General Family Medicine 09/11/23 Xiomara Garcias MD, IBCLC [address] [place] [address] PCP - Medical [place] [employer] 12/04/22 07/05/99 documented as of this encounter
--- OUTSIDE RECORDS SUMMARY | 2025-02-02 19:34 | XMS_ITS | Clinical Summary ---
Author Organization [facility] Address [address] [place] [address] Phone Care Team Providers Care Properties Supervisor Name Role Phone Unavailable Primary Care Provider Unavailabl e Social History Tobacco Use Types Packs/Day Years Used Date Smoking Tobacco: Never Assessed Comments Unknown Sex and Gender Information Value Date Recorded Sex Assigned at Not on file Legal Sex Female 11:32 AM EDT Gender Identity Not on file Sexual Orientation Not on file Plan of Treatment Health Maintenance Due Date Last Done Comments HIV Screening 1989 Lipid Panel 1989 Yearly Adult Physical 1989 MMR Vaccines (1 of 1 - Stand ryan series) 1990 Hepatitis C Screening 2007 Hepatitis B Vaccines (1 of 3 - 19+ 3-dose series) 2008 Cervical Cancer Screening 2010 HPV/Cotest 2010 Pap Smear 2010 DTaP/Tdap/Td Vaccines (1 - Tdap) 2011 HPV Vaccines (1 - 3-dose sta ndard series) 2016 COVID-19 Vaccine (1 - 2023-2 5 season) 2024 Influenza Vaccine (#1) 2025 Zoster Vaccines (1 of 2) 2039 HIB Vaccines Aged Out No longer eligi ble based on patient's age to complete this topic Hepatitis A Vaccines Aged Out No long er eligible based on patient's age to complete this topic IPV Vaccines Aged Out No longer eligi ble based on patient's age to complete this topic Meningococcal Vaccine Aged Out No june makenzie eligible based on patient's age to complete this topic Pneumococcal Vaccine: Pediat rics and At-Risk Adult Patients Aged Out No longer deisy gible based on patient's age to complete this topic Rotavirus Vaccines Aged Out No longer eligible based on patient's age to complete this topic
--- OUTSIDE RECORDS SUMMARY | 2025-02-02 19:34 | XMS_ITS | Patient Health Record ---
Author Organization [facility] Address [address] [place] [address] Care Team Providers Care Stab Setter And Driller Name Role Phone Fatemeh Ventura Primary Care Provider Allergies No Known Allergies Reason For Referral No Information Medications Medication SIG (Take, Route, Frequency, Duration) Notes Start Date End Date Status Lisinopril 10 mg TAKE 1 TABLET BY MARLEY TH EVERY DAY; Duration: 30 Active Mounjaro 5 MG/0.5ML INJECT 5 MG SUBCUTANEOUSLY Subcutaneous once a week; Duration: 30 days Active Blood Glucose Test - as directed In Vitr o Three times a day; Duration: 30 days What insurance will cove r 01/22/2023 Active Lancets - as directed subcutaneously Three times a day; Duration: 30 days What insurance will cover 01/22/2023 Active glipiZIDE 5 mg TAKE 1 TABLET BY MARLEY TH 30 MINUTES before morning meal EVERY DAY; Duration: 30 Active Atorvastatin Calcium 40 mg TAKE 1 TABLET BY MOUTH EVERY DAY; Duration: 30 Active metFORMIN HCl 500 mg TAKE 1 TABLET BY MO UT TWICE DAILY WITH MEALS; Duration: 30 Active Social History Tobacco Use: Social History Observation Description Date Details (start date - stop date) Former Smoker NA - NA Sex Assigned At : Social History Observation Description Sex Assigned At Female Tobacco Screen: Question Answer Notes Are you a: former smoker How long has it been since you last smoked? 5-10 years Sexual Hx: Question Answer Notes Had sex in the last 12 months (vaginal, oral, or anal)? Yes with Men only Alcohol Screening: Question Answer Notes Did you have a drink contain ing alcohol in the past year? Yes How often did you have a dri nk containing alcohol in the past year? Monthly or less (1 point) How many drinks did you have on a typical day when you were drinking in the past year? 1 or 2 (0 points) Points 1 Interpretation Negative Depression Screening (PHQ-9): Question Answer Notes Little interest or pleasure in doing things Kailyn ral days Feeling down, depressed, or hopeless More than h long-term the days Trouble falling or staying asleep, or sleeping t oo much More than half the days Feeling tired or having little energy Several da ys Poor appetite or overeating More than half the d ays Feeling bad about yourself-o r that you are a failure or have let yourself or your family down Several days Trouble concentrating on thi ngs, such as reading the newspaper or watching television Several days Moving or speaking so slowly that other people could have noticed. Or the opposite being so fidgety or restless that you have been moving around a lot more than usual Not at all Thoughts that you would be b arianna off , or of hurting yourself in some way Not at all Total Score 10 Intepretation Moderate Depression Problems Problem Type SNOMED Code ICD Code Onset Dates Problem Status W/U Status Risk Notes Problem Type 2 diabetes mellitus with other specified complication (E11.69) Active confirmed Problem Obstructive sleep apnea syndrome (49511295) SHANNA (obstructive sleep apnea) (G47.33) Active confirmed Problem Mixed anxiety and depressive disorder (251548442) Depression with anxiety (F41.8) Active confirmed Problem 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 Problem Hyperlipidaemia (43297173) Hyperlipidemia, unspecified hyperlipidemia type (E78.5) Active confirmed Problem Anxiety state (008819187) 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) Active confirmed Plan Of Treatment No Information Insurance Providers Payer Name Payer Address Payer Phone Subscriber Number Group Number Insured Name Patient Relationship to Insured Coverage Start Date Coverage End Date [employer] PPO [address] [place] [address] [id number] JEET MCKINNON Self - patient is the insured 3 [employer] [place] [address] [place] [address] [id number] JEET MCKINNON Self - patient is the insured 2 2 [facility] [address] [place] [address] [id number] JEET MCKINNON Self - patient is the insured 2 3 [facility] [address] [place] [address] [id number] JEET MCKINNON Self - patient is the insured 3 3 Medical (General) History Medical History History ICD Code type II diabetes hypertension hyperlipidemia Miscarriage x2 cellulitis pneumonia Surgical History Surgery Date(Month/Year) dilatation and curettage Hospitalization History Reason Date(Month/Year) cellulitis see surgical
--- OUTSIDE RECORDS SUMMARY | 2025-02-02 19:34 | XMS_ITS | Clinical Summary ---
Author Organization [facility] Address [id number] [address] [place] [address] Care Team Providers Care Outcomes Specialist Name Role Phone Unavailable Primary Care Provider Unavailabl e Allergies No known active allergies Medications blood sugar diagnostic strip USE TO CHECK BLOOD SUGAR THREE TIMES DAILY 08/05/19 24 Active lisinopriL (PRINIVIL,ZESTRI L) 10 mg tablet Take 1 tablet (10 mg total) by mouth in the morning. Active metFORMIN (GLUCOPHAGE) 500 mg tablet Take 1 tablet (500 mg total) by mouth. Active MOUNJARO 5 mg/0.5 mL pen injector INJECT 5 MG SUBCUTANEOUSLY Subcutaneous once a week 30 days 08/25/19 24 Active glipiZIDE (GLUCOTROL) 10 mg tabletIndication s:Type 2 diabetes mellitus with hypoglycemia without coma, without long-term current use of insulin ([facility]) Take 1 tablet (10 mg total) by mouth in the morning and 1 tablet (10 mg total) in the evening. Take before meals. 180 tablet 3 09/16/19 24 Active Active Problems Problem Noted Date Diagnosed Date Primary hypertension 11/13/2023 Type 2 diabetes mellitus wit h diabetic polyneuropathy, without long-term current use of insulin 11/13/2023 Family History Medical History Relation Name Comments Diabetes Father Heart attack Father 60s Stroke Father COPD Maternal Grandfather Diabetes Maternal Grandmother Gout Maternal Grandmother Hypothyroidism Mother Diabetes Paternal Grandfather Uterine cancer Paternal Grandmother Relation Name Status Comments Father Maternal Grandfather Maternal Grandmother Mother Paternal Grandfather Paternal Grandmother Social History Tobacco Use Types Packs/Day Years Used Date Smoking Tobacco: Former Cigarettes Q uit: 2014 Smokeless Tobacco: Never Tobacco Cessation:Counseling Given: Not Answered Alcohol Use Standard Drinks/Week Comments Yes 0 [...] Orientation Straight 09/13/2023 10 :59 PM EDT Last Filed Vital Signs Vital Sign Reading Time Taken Comments Blood Pressure 165/105 09/16/2023 10:24 AM EDT Pulse 73 09/16/2023 10:24 AM EDT Temperature - - Respiratory Rate - - Oxygen Saturation - - Inhaled Oxygen Concentration - - Weight 151.1 kg (333 lb 3.2 oz) 024 10:24 AM EDT Height - - Body Mass Index - - Plan of Treatment Health Maintenance Due Date Last Done Comments Diabetic Ophthalmology Exam 1989 Depression Screening 2001 Adult BMI Screening 2007 Diabetic Foot Exam 2007 DTaP,Tdap and Td Vaccines (1 - Tdap) 2008 Pap Smear 2010 COVID-19 Vaccine (2 season) 2024 Tobacco Screening 09/15/2024 09/16/2023 Influenza Vaccine 03/06/2025 04/14/2023, , 04/24/2017 Medical Devices Not on file Insurance [employer] Member Subscriber Plan / Payer (Ef fective 2022-Present) Name:Terri Bajwa Relation to Subscriber:Self Name:Terri Bajwa Payer ID:Not on file Type:Not on file Address: [facility] [address] [id number]
--- OUTSIDE RECORDS SUMMARY | 2025-02-02 19:34 | XMS_ITS | Encounter Summary ---
Author Organization [facility] Address [address] [place] [address] Care Team Providers Care Contract Associate Name Role Phone Xiomara Garcias MD, IBCLC Primary Care Provid er Xiomara Garcias MD, IBCLC Unavailable [phone] Encounter Details Date Type Department Care Team (Late st Contact Info) Description 11/01/2024 Results Follow-Up [facility] [address] [place] [address] Xiomara Garcias MD, IBCLC [address] [place] [address] Social History Tobacco Use Types [...] often do you attend chur ch or rastafarian services? Never 10/31/2024 Do you belong to any clubs o r organizations such as zoroastrian groups, unions, fraternal or athletic groups, or [...] medical care, and heating? Somewhat hard 10/31/2024 [facility] of Occupat ional Health - [...] place to sleep or slept in a senior care (including now)? Yes 10/21/2023 Housing Stability Vital Sign Answer Jelani e Recorded In the last 12 months, was t here a time when you were not able to pay the mortgage or rent on time? Yes 10/31/2024 Number of Times Moved in the Last Year Not on fi le 10/31/2024 At any time in the past 12 m [facility], were you homeless or living in a senior care (including now)? No 10/31/2024 Comments Unknown Sex [...] Visit [facility] [address] [place] [phone] Xiomara Garcias MD, IBCLC [address] [place] [address] documented as of this encounter Visit Diagnoses Not on filedocumented in this encounter Care Teams Contract Associate Relationship Specialty Start Date End Date Xiomara Garcias MD, IBCLC [address] [place] [address] PCP - General Family Medicine 09/11/23 Xiomara Garcias MD, IBCLC [address] [place] [address] PCP - Medical [place] [employer] 12/04/22 07/05/99 documented as of this encounter
[2025-02-07 13:11] LABS: Age Gdln ACOG Testing Note (.); IGP, Aptima HPV, rfx 16/18,45 Note (.)
== END 2025-02-02 19:31 | disposition home or self-care (01) ==
LOC: LAB 19:30
PROVIDERS: Visit Provider Physician Assistant
DX: Z01.419 Encounter for gynecological examination (general) (routine) without abnormal findings (principal)
CPT/HCPCS: 87624; 88175